=== PATIENT | female | born 1990 | race African-American/Black ===

== ENCOUNTER 2020-06-22 15:16 | Emergency (ER) | payer OTHER, SELFPAY ==
[2020-06-22 15:23] VITALS: BP 110/51; PULSE 69; RESP 18; TEMP 36.9; O2SAT 99
[2020-06-22 15:51] LABS: Add Urine Microscopic? YES; Appearance Urine Clear (Clear); Bilirubin Urine Negative (Negative); Blood Urine Negative (Negative); Color Urine Yellow (Yellow); Glucose Urine UA Negative (Negative); Ketones Urine Negative (Negative); Leukocyte Esterase Ur Negative LEU/UL (Negative); Mucus Urine Rare /lpf; Nitrate Urine Negative (Negative); Protein Urine 1+ mg/dL (Negative); RBC Urine 0-2 /hpf (0-2); Specific Grav Ur 1.018 (1.001-1.035); Squamous Epithelial Cell Urine Rare /hpf (Few); Urobilinogen Urine Negative mg/dL (<2.0); WBC Urine 0-3 /hpf
--- NOTE | 2020-06-22 16:01 | ED.GENADULT ---
HPI - General Adult General Chief complaint: Urogenital-Female Stated complaint: uti sxs/sores to genitals Time Seen by Provider: 06/22/20 15:19 Source: patient Mode of arrival: ambulatory Limitations: no limitations History of Present Illness HPI narrative: Patient is a 29-year-old female who presents with wounds to the vagina noting history of herpes but is currently not on any medications and does not have a hospitalist nocturnist physician patient would also like to be tested and treated for STDs noting a small amount of white discharge patient otherwise has no other complaints and is resting comfortably in the room in no distress upon arrival Related Data Allergies Allergy/AdvReac Type Severity Reaction Status Date / Time No Known Allergies Allergy Verified 06/22/20 15:26 Review of Systems Review of Systems: All systems reviewed & are unremarkable except as noted in HPI and below PMFSH Social History Social History (Updated 06/22/20 @ 16:04 by Jefe Guan PA-C) Smoking status: Never smoker Gender identity (if verbalized by the patient): Female Exam Narrative: Exam Narrative: GENERAL: Well-appearing, well-nourished, and in no acute distress. HEAD: Normocephalic, atraumatic. EYES: PERRLA and EOMI. ENT: Nares clear, no rhinorrhea or epistaxis. Mucous membranes moist. CHEST: Clear to auscultation. No respiratory distress. No wheezes rales or rhonchi HEART: Regular rate and rhythm. No murmur heard. Normal peripheral pulses. FEMALE GENITOURINARY: Patient with a few small lesions of the left labia otherwise unremarkable exam EXTREMITIES: Normal range of motion. No edema. SKIN: Warm, dry, no rash. NEURO: No focal deficits. Alert and oriented x3. PSYCH: Normal mood and affect. Course Course Emergency Course: Patient in the room aware of case findings treatment plan and diagnosis Vital Signs Vital signs: Vital Signs Temperature 98.4 F 06/22/20 15:23 Pulse Rate 69 06/22/20 15:23 Respiratory Rate 18 06/22/20 15:23 Blood Pressure 110/51 L 06/22/20 15:23 Pulse Oximetry 99 06/22/20 15:23 Temperature 98.4 F 06/22/20 15:23 Pulse Rate 69 06/22/20 15:23 Respiratory Rate 18 06/22/20 15:23 Blood Pressure 110/51 L 06/22/20 15:23 Pulse Oximetry 99 06/22/20 15:23 Medical Decision Making MDM Narrative Medical decision making narrative: Patient tested and treated for STDs will be referred to gynecology given reasons to return Vital Signs Vital Signs: Vital Signs Temperature 98.4 F 06/22/20 15:23 Pulse Rate 69 06/22/20 15:23 Respiratory Rate 18 06/22/20 15:23 Blood Pressure 110/51 L 06/22/20 15:23 Pulse Oximetry 99 06/22/20 15:23 Temperature 98.4 F 06/22/20 15:23 Pulse Rate 69 06/22/20 15:23 Respiratory Rate 18 06/22/20 15:23 Blood Pressure 110/51 L 06/22/20 15:23 Pulse Oximetry 99 06/22/20 15:23 Lab Data Labs: Lab Results 06/22/20 Range/Units 15:37 Urine Color Yellow (Yellow) Urine Appearance Clear (Clear) Urine pH 7.0 (5.0-9.0) Ur Specific [place] 1.018 (1.001-1.035) Urine Protein 1+ H (Negative) mg/dL Urine Glucose (UA) Negative (Negative) mg/dL Urine Ketones Negative (Negative) mg/dL Ur Blood (Man) Negative (Negative) Urine Nitrate Negative (Negative) Urine Bilirubin Negative (Negative) Urine Urobilinogen Negative (<2.0) mg/dL Leukocyte Esterase Rfl Negative (Negative) RICCI/UL Urine RBC 0-2 (0-2) /hpf Urine WBC 0-3 /hpf Ur Squamous Epith Cells Rare (Few) /hpf Urine Mucus Rare /lpf UCG Bedside Result Negative Reference Range: Negative Discharge Plan Discharge Clinical Impression: Vaginitis Patient Disposition: Home, Self-Care Condition: Stable Instructions: Antibiotic Form, Genital Herpes Simplex (ED) Additional Instructions: Follow-up with gynecology for culture results and reevaluation in the next 5 da
[2020-06-22] MEDS: metroNIDAZOLE 250 MG TABLET 2000 MG PO (16:06)
[2020-06-22] MEDS: cefTRIAXone 250 MG VIAL IM (16:06)
[2020-06-22] MEDS: AZITHROMYCIN 250 MG TABLET 1000 MG PO (16:06)
[2020-06-22] MEDS: LIDOCAINE HCL 1% LOCAL INJ 20 ML VIAL (16:06)
[2020-06-22 16:44] VITALS: BP 112/62; PULSE 70; RESP 18; O2SAT 99
== END 2020-06-22 16:45 | disposition home or self-care (01) ==
LOC: ANHED 16:15
PROVIDERS: Emergency Medicine Emergency Medical Services; Emergency Provider Emergency Medicine; Referring Provider Emergency Medicine
DX: N76.0 Acute vaginitis (principal)
CPT/HCPCS: 81001; 81025; 87070; 87077; 87491; 87591; 87808; 96372; 99284; A9270; J0696

== ENCOUNTER 2021-03-08 13:58 | Emergency (ER) | payer OTHER, SELFPAY ==
--- NOTE | 2021-03-08 14:29 | ED.URI ---
HPI - URI/Sore Throat General Chief Complaint: Upper Respiratory Infection Stated Complaint: cough Source: patient and RN notes reviewed Mode of arrival: ambulatory History of Present Illness HPI Narrative: This is a 30-year-old female who presented to our clinic noting that she has had a cough with some nausea. She notes that she has been exposed to COVID-19 according to her sister and nephew tested positive for COVID-19. Patient will be tested for Covid via the drive-through. The patient denies SOB, CP, palpitation, extremity numbness, lightheadedness, dizziness, constipation, diarrhea, chills, or fever. Related Data Allergies Allergy/AdvReac Type Severity Reaction Status Date / Time No Known Allergies Allergy Verified 06/22/20 15:26 Review of Systems Review of Systems: A 14 organ system Review of Systems was performed and pertinent positives included in the HPI, otherwise remaining ROS is negative. [facility] Family History Family History (Updated 03/08/21 @ 14:30 by GRIFFIN Lundberg) Other Family history non-contributory Social History Social History (Updated 06/22/20 @ 16:04 by Jefe Guan PA-C) Smoking status: Never smoker Gender identity (if verbalized by the patient): Female Exam Narrative: GENERAL: This is a well-nourished, well-developed patient, in no apparent distress. HEAD: normocephalic, atraumatic. EYES: PERRL. Sclera clear/white. Vision is grossly intact. EARS: External ears normal, auditory canals clear and without drainage, TMs normal without perforation. Hearing grossly intact. NOSE: External nose normal with no obvious nasal discharge, nares without redness, no rhinorrhea. THROAT: Mucous membranes moist, posterior pharynx clear. NECK: Neck supple, non-tender without lymphadenopathy, masses or thyromegaly. CARDIOVASCULAR: Regular rate and rhythm without murmurs, gallops, or rubs. RESPIRATORY: Clear to auscultation. Breath sounds equal bilaterally. No wheezes, rales, or rhonchi. GASTROINTESTINAL: Abdomen soft, non-tender, nondistended. Bowel sounds are active. No hepato-splenomegaly, or palpable masses. No guarding. SKIN: warm, intact with no suspicious lesions or rash, good texture and turgor. NEURO: awake, alert, and oriented to person, place and time. There were no obvious focal neurologic abnormalities. Steady gait EXTREMITIES: Normal range of motion. No edema. No calf tenderness. Negative Homans sign bilaterally. BACK: Nontender without deformity or crepitance. No flank tenderness. Course Course Emergency Course: Patient given a prescription for drive-through Covid testing Vital Signs Vital signs: Vital Signs Temperature 98.6 F 03/08/21 14:34 Pulse Rate 91 03/08/21 14:34 Respiratory Rate 18 03/08/21 14:34 Blood Pressure 97/60 L 03/08/21 14:34 Pulse Oximetry 100 03/08/21 14:34 Temperature 98.6 F 03/08/21 14:34 Pulse Rate 91 03/08/21 14:34 Respiratory Rate 18 03/08/21 14:34 Blood Pressure 97/60 L 03/08/21 14:34 Pulse Oximetry 100 03/08/21 14:34 MDM - URI/Sore Throat Differential Diagnosis Differential diagnosis: Likely upper respiratory infection, sinusitis and other (Remain isolation/quarantine ? means to stay separate from other people, so that sickness is not spread for 14 days. ? Your Local Health Department will be contacting you to verify that you have received and can follow these instructions. If you have not been contacted, please) Discharge Plan Discharge Clinical Impression: COVID-19 ruled out by laboratory testing, Common cold Patient Disposition: Home, Self-Care Condition: Stable Instructions: Antibiotic Form, Cold Symptoms (ED), COVID-19 (Coronavirus Disease 2019) (ED) Additional Instructions: When should I call the doctor or nurse? ? Most people who have a cold do not need to see the doctor or nurse. But you should call your doctor or nurse if you have: ?A fever of more than 100.4? F (38
[2021-03-08 14:34] VITALS: BP 97/60; PULSE 91; RESP 18; TEMP 37; O2SAT 100
== END 2021-03-08 15:02 | disposition home or self-care (01) ==
PROVIDERS: Emergency Provider Nurse Practitioner
DX: J00 Acute nasopharyngitis [common cold] (principal); Z20.822 Contact with and (suspected) exposure to COVID-19
CPT/HCPCS: 99211; 99213; G0463

== ENCOUNTER 2022-11-21 12:43 | Outpatient (CLI) | payer OTHER, SELFPAY ==
--- NOTE | ~2022-11-21 | US_ITS ---
EXAMINATION: US transvaginal DATE: 11/21/2022 13:36 INDICATION: IUD check. Comparison:No prior studies for comparison. TECHNIQUE: Multiple transabdominal and endovaginal sonographic images of the pelvis performed. FINDINGS: The uterus measures 8.8 x 4.5 x 6.4 cm. There is an IUD located in the endometrium. Minimal fluid in the endometrium. The endometrial complex measures 1.5 mm. The right ovary measures 3.3 x 1.7 x 2.2 cm and the left ovary measures 4.0 x 2.2 x 3 cm. There are small follicles in each ovary. Normal doppler signal in both ovaries. There is trace free fluid in the pelvis. There are no abnormal masses seen on either side. IMPRESSION: 1. Unremarkable pelvic ultrasound. IUD located in the endometrium. Reviewed, dictated and finalized at location A.
== END 2022-11-21 12:44 | disposition home or self-care (01) ==
PROVIDERS: PCP Physician Assistant; Visit Provider Physician Assistant
DX: Z30.431 Encounter for routine checking of intrauterine contraceptive device (principal)
CPT/HCPCS: 76830

== ENCOUNTER 2024-03-29 12:06 | Emergency (ER) | payer OTHER, SELFPAY ==
--- NOTE | 2024-03-29 12:07 | ED.SKABFB ---
HPI - Skin/Abscess/Foreign Bdy General Chief complaint: Skin/Abscess/Foreign Body Stated complaint: Insect Bite Time Seen by Provider: 03/29/24 12:37 Source: patient, RN notes reviewed and old records reviewed Mode of arrival: ambulatory Limitations: no limitations History of Present Illness HPI narrative: 33-year-old female presents to the [facility] with a sore blister to the upper lip right side. Started with some discomfort on Friday and has progressed. Onset (ago): day(s) (3) Treatments prior to arrival: none Related Data Home Medications Medication Instructions Recorded Confirmed doxycycline hyclate 100 mg tablet 100 mg PO BID 03/29/24 03/29/24 metronidazole 500 mg tablet 500 mg PO TID 03/29/24 03/29/24 valacyclovir 500 mg tablet 500 mg PO DIRECTED 03/29/24 03/29/24 Allergies Allergy/AdvReac Type Severity Reaction Status Date / Time No Known Allergies Allergy Verified 03/29/24 12:21 Review of Systems Review of Systems: All systems reviewed & are unremarkable except as noted in HPI and below Constitutional: Constitutional: Reports no additional constitutional complaints Eyes: Eyes: Reports no additional eye complaints ENT: Reports as per HPI and Reports mouth lesions (Lip lesion) Cardiovascular: Cardiovascular: Reports no additional cardiovascular complaints, Denies chest pain and Denies dyspnea Respiratory: Respiratory: Reports no additional respiratory complaints, Denies chest congestion, Denies cough and Denies dyspnea Gastrointestinal: Gastrointestinal: Reports no additional gastrointestinal complaints, Denies abdominal pain, Denies nausea and Denies vomiting Musculoskeletal: Musculoskeletal: Reports no additional musculoskeletal complaints Integumentary/Breasts: Skin/Breast: Reports system reviewed and no additional complaints, except as docu Neurologic: Reports system reviewed and no additional complaints, except as documented Psychiatric: Psychiatric: Reports no additional psychiatric complaints Allergic/Immunologic: Allergic/Immunologic: Reports no additional allergic/immunologic complaints [facility] Family History Family History Other Family history non-contributory Social History Social History Smoking status: Never smoker Gender identity (if verbalized by the patient): Female Comments At the time of my signature, I reviewed and agree with the nursing past medical, surgical, social, and family history. There is no relevant family history pertinent to the patient complaint. Exam Const: General: cooperative, healthy appearing, comfortable, no acute distress, well developed, alert and well nourished Nutritional Appearance: well nourished Orientation/consciousness: patient oriented x3 Limitations: no limitations HENMT: Head: normal to inspection Ears: hearing grossly normal bilaterally and external ears normal Face/Nose/Sinus: Normal external nose present, Normal nares present, Normal nasal mucous membranes and turbinates present, normal facial exam and face symmetric Face and sinus: normal facial exam and face symmetric Mouth: Yes tongue normal, Yes Normal salivary glands and ducts present and Yes lip abnormal (Blister lesion noted to the upper right) Mouth/tongue images: 1. Blister/ lesion Eyes: General: appearance normal, both eyes and all related structures Alignment and Position: alignment normal Periorbital: periorbital findings normal Pupils: Equal, round and reactive pupils present EOM: EOMs intact bilaterally Neck: Neck: normal visual inspection, full ROM, no lymphadenopathy and no meningeal signs Chest: Chest palpation & inspection: normal inspection of the chest Resp: Effort & Inspection: normal respiratory effort and able to speak in complete sentences Cardio: Rate: regular rate Skin: General skin exam: normal color Trauma: no lacerations or ab
[2024-03-29 12:15] VITALS: BP 108/62; PULSE 77; RESP 20; TEMP 36.9; O2SAT 100
[2024-03-29 12:23] VITALS: BP 108/62; PULSE 77; RESP 20; TEMP 36.9; O2SAT 100
== END 2024-03-29 12:52 | disposition home or self-care (01) ==
PROVIDERS: Emergency Provider Nurse Practitioner; PCP Physician Assistant
DX: B00.9 Herpesviral infection, unspecified (principal)
CPT/HCPCS: 99213; G0463